=== PATIENT | female | born 1950 | race Caucasian/White ===

== ENCOUNTER 2020-05-07 13:17 | Emergency (ER) | payer MEDICARE ==
[~2020-05-07] VITALS: Ht 175.2 cm; Wt 127.0 kg
[2020-05-07] MEDS ORDERED: HYDROCODONE-AC1 EAC1 PO (16:33)
== END 2020-05-07 16:42 | disposition home or self-care (01) ==
LOC: ED 13:17
DX: S01.01XA Laceration without foreign body of scalp, initial encounter (principal); S22.41XA Multiple fractures of ribs, right side, initial encounter for closed fracture; S09.90XA Unspecified injury of head, initial encounter; R07.81 Pleurodynia; Z90.710 Acquired absence of both cervix and uterus; Z90.49 Acquired absence of other specified parts of digestive tract; W00.2XXA Other fall from one level to another due to ice and snow, initial encounter; Y93.89 Activity, other specified; Y92.89 Other specified places as the place of occurrence of the external cause; Y99.8 Other external cause status